=== PATIENT | male | born 2000 | race Caucasian/White ===

== ENCOUNTER 2022-12-15 08:19 | Emergency (ER) | payer OTHER ==
[~2022-12-15] VITALS: Ht 188 cm; Wt 93.3 kg
[2022-12-15] MEDS ORDERED: HYDROCODON-ACE1 EA10 PO (08:51)
[2022-12-15 09:28] VITALS: BP 127/79
== END 2022-12-15 09:28 | disposition home or self-care (01) ==
LOC: ED 08:19
DX: S52.302A Unspecified fracture of shaft of left radius, initial encounter for closed fracture (principal); W31.9XXA Contact with unspecified machinery, initial encounter; Y92.828 Other wilderness area as the place of occurrence of the external cause
CPT/HCPCS: 29125; 73090; 99283-25

== ENCOUNTER 2022-12-20 09:55 | Day surgery (SDC) | payer OTHER ==
[~2022-12-20] VITALS: Ht 188 cm; Wt 89.2 kg
[~2022-12-20 09:55] MED LIST: HYDROCODON-ACE1 EA10 PO
[2022-12-20] MEDS ORDERED: OXYCODONE HCL5 MG PO ×2 (10:26→14:06)
[2022-12-20 10:31] VITALS: BP 147/71
[2022-12-20 15:05] VITALS: BP 117/68
--- NOTE | 2022-12-20 15:08 | NUR ---
12/20/22 1508 Elisabeth Mcfarlane 1404 PT ARRIVED IN PACU NON RESPONSIVE TO NOXIOUS STIMULI WITH OPA IN PLACE. 1406 PT REACTIVE. OPA REMOVED. 1410 PT REPOSITIONED SELF TO L SIDE. ELEVATED L ARM ON PILLOWS. 1421 C/O L ARM PAIN 8/10. FENTANYL 50MCG GIVEN IVP. 1427 PAIN DOWN TO 7/10. FENTANYL 50MCG GIVEN IVP. 1430 TC TO ANESTHESIA ABOUT RE BLOCKING PT. 1445 PT RE BLOCKED BY ANESTHESIA. NO C/O'S. 1500 TO DS. REPORT GIVEN TO RN. CALL LITE AND PT'S CELL PHONE GIVEN TO HIM.
--- NOTE | 2022-12-20 15:13 | NUR ---
PATIENT BACK IN DAY SURGERY ROOM FROM PACU. DENIES PAIN. DROWSY. VS CHECKED. LEFT ARM NUMBNESS. LEFT FINGERS WARM WITH CAP REFILL LESS THEN 2 SECONDS. LEFT ARM DRESSING CLEAN, DRY, AND INTACT. ICE PACK TO LEFT WRIST. ICE WATER PLACED AT BEDSIDE. CALL LIGHT WITHIN REACH.
[2022-12-20 15:55] VITALS: BP 115/52
--- NOTE | 2022-12-20 16:36 | NUR ---
1536: PATIENT DENIES PAIN. NO NEEDS AT THIS TIME. 1548: DISCHARGE INSTRUCTIONS GIVEN TO PATIENT. VS CHECKED. PATIENT ASSISTED TO SIT ON SIDE OF BED. IV DC'D WNL. TIP INTACT. DRESSING APPLIED. PATIENT ASSISTED TO GET SHIRT ON. LEFT ARM PLACED IN SLING. GAIT STEADY WALKING AROUND ROOM. PATIENT DRESSED THE REST INDEPENDENTLY. 1610: PATIENT DISCHARGED TO HOME VIA WHEELCHAIR WITH BROTHER.
--- NOTE | 2022-12-22 08:14 | OR ---
[facility] [address] [place], [place] [address] Signed DATE OF OPERATION: 12/20/2022 SURGEON: Nguyễn Manuel MD PREOPERATIVE DIAGNOSIS: Left distal radius fracture, displaced. POSTOPERATIVE DIAGNOSIS: Left distal radius fracture, displaced. PROCEDURE PERFORMED: Open reduction and internal fixation of left distal radius. FRAME MAKER: None. ANESTHESIA: General. BLOOD LOSS: None. TOURNIQUET TIME: 32 minutes. IMPLANTS: Dread six hole 3.5 LCDC plate with six screws. BRIEF HISTORY: Crystal is a 22-year-old gentleman, who was at work when his arm got caught under a hydraulic press fracturing the radius and angulating it substantially. Risks and benefits of operative treatment were discussed with him and he elected to proceed. DESCRIPTION OF PROCEDURE: Once consent was obtained, he was taken to the operating room. After adequate anesthesia, he was placed on the operating room table with the hand board. The arm was then prepped and draped in a standard sterile fashion up to the tourniquet. He was placed in a well-padded proximal arm tourniquet. The arm was exsanguinated using Esmarch bandage. Tourniquet inflated to 200 mmHg. Standard volar Isreal approach was taken through the skin and subcutaneous tissue after centering it over the fracture. 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 The torn muscle was then cleared off the volar aspect of the radius. Care was taken to protect the nerve. The radius was then reduced and a six hole plate was centered over the fracture. The two screws on either side of the fracture were then placed under image intensifier guidance. The plate was well centered and screw lengths were appropriate. The remaining four holes were then drilled and appropriate length screws were placed. The final radiograph showed anatomic reduction and appropriate screw lengths and plate placement. The wound was then copiously irrigated with normal saline, closed with 3-0 Monocryl and 3-0 Prolene. The wound was then sealed with LiquiBand and Steri-Strips were applied. The wound was then dressed with Allevyn, 4 x 8 and Colby wrap. He was placed in a cock-up wrist splint. He tolerated the procedure well. All sponge, needle, and instrument counts were correct. 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
== END 2022-12-20 16:10 | disposition home or self-care (01) ==
LOC: DS 09:55
PROVIDERS: ATTEND Specialist
PROC: 3E0T3BZ Introduction of Anesthetic Agent into Peripheral Nerves and Plexi, Percutaneous Approach (ICD-10-PCS; 2022-12-20)
PROC: 0PSJ04Z Reposition Left Radius with Internal Fixation Device, Open Approach (ICD-10-PCS; principal; 2022-12-20 12:45)
DX: S52.552A Other extraarticular fracture of lower end of left radius, initial encounter for closed fracture (principal)
CPT/HCPCS: 01830; 64415; 73100; 76942; C1713; J0690; J1100; J1885; J2001; J2250; J2405; J2704; J2795; J3010; J3490; J7121

== ENCOUNTER 2024-09-15 02:28 | Emergency (ER) | payer OTHER, BC ==
[~2024-09-15] VITALS: Ht 188 cm; Wt 99.0 kg
[~2024-09-15 02:28] MED LIST changes: +OXYCODONE HCL5 MG PO
[2024-09-15] MEDS ORDERED: AMOX TR-K CLV1 EAC1 PO (03:57)
[2024-09-15] MEDS ORDERED: AMOXICILLIN/CLAVULANATE K 875 MG HOME.PACK PO ONE (04:00)
[2024-09-15] MEDS ORDERED: HYDROCODONE BIT/ACETAMINOPHEN 5/325 MG 1 TAB HOME.PACK PO ONE (04:00)
[2024-09-15 04:16] VITALS: BP 124/84
[2024-09-21] MEDS ORDERED: LEVOFLOXACIN750 MG PO (10:24)
[2024-09-21] MEDS ORDERED: CLINDAMYCIN HC300 MG PO (10:24)
== END 2024-09-15 04:17 | disposition home or self-care (01) ==
LOC: ED 02:28
DX: S91.012A Laceration without foreign body, left ankle, initial encounter (principal); Z79.899 Other long term (current) drug therapy; J45.909 Unspecified asthma, uncomplicated; V86.56XA Driver of dirt bike or motor/cross bike injured in nontraffic accident, initial encounter
CPT/HCPCS: 12002; 73610; 99283; A9270